=== PATIENT | male | born 1970 | race African-American/Black ===

== ENCOUNTER 2020-01-04 21:53 | Emergency (ER) | payer MEDICAID ==
[~2020-01-04] VITALS: Ht 188 cm; Wt 98.0 kg
[2020-01-05 00:24] VITALS: BP 127/88
== END 2020-01-05 00:25 | disposition home or self-care (01) ==
LOC: ER 21:53
DX: M79.662 Pain in left lower leg (principal); E11.9 Type 2 diabetes mellitus without complications; I10 Essential (primary) hypertension; Z86.718 Personal history of other venous thrombosis and embolism; Z79.01 Long term (current) use of anticoagulants
CPT/HCPCS: 99283